=== PATIENT | female | born 1950 | race African-American/Black ===

== ENCOUNTER 2018-05-22 14:59 | Inpatient (IN) | payer MEDICARE, OTHER ==
[~2018-05-22] VITALS: Ht 165.1 cm; Wt 71.2 kg
[~2018-05-22 14:59] MED LIST: ALLEVE; ASPIRIN; BENADRYL 50 MG PO; BUSPAR; CHLORPROMAZINE; COGENTIN; HALOPERIDOL; RISP2TAB23 PO; ROBITUSSIN AC; TYLENOL; [UNRECOGNIZED DRUG - OTHER] PO; valium PO
--- NOTE | 2018-05-22 15:06 | NUR ---
THERE IS NO INFORMATION ABOUT PATIENT REGULAR MEDICATIONS AVAILABLE.
--- NOTE | 2018-05-22 15:09 | NUR ---
PT IS IN ROOM #1A UNDER DIRECT OBSERVATION OF ANGELINA MILLER AND SECURITY AT THE BEDSIDE. CONTINUE TO MONITOR THE PT.
--- NOTE | 2018-05-22 15:11 | NUR ---
PT IS IN ROOM #1A. DR MTZ EVALUATED THE PT.
--- NOTE | 2018-05-22 16:29 | NUR ---
REPORT WAS GIVEN TO RN MENTAL HEALTH. PT WAS TRANSFERED TO U ROOM #137.
--- NOTE | 2018-05-22 17:10 | NUR ---
Gps/Computer Operator- Admitted from ER via wheel chair, in no sign of any distress, anxious, labile mood, speech garble, unclear , gets irritable when questions asked and to clarified words she uttered. Patient noted urgency in urinations 3x to get up to go to the bathroom. Refusal noted to answer questions , gets up and walks away. Showed room, unable to do body check , patient refused to cooperate.Right eye blind, missing teeth , no dentures.
[2018-05-22] MEDS ORDERED: MAGNESIUM HYDROXIDE 30 ML LIQUID UDC PO PRN (17:45)
[2018-05-22] MEDS ORDERED: TEMAZEPAM 7.5 MG CAPSULE PO PRN (17:45)
[2018-05-22] MEDS ORDERED: CIPR-262 PO (18:24)
[2018-05-22 18:34] VITALS: BP 137/76
--- NOTE | 2018-05-22 19:30 | NUR ---
Received patient asleep in room, bed in low position and locked. Noise and lights subdued. Will continue to monitor.
--- NOTE | 2018-05-23 05:37 | NUR ---
Patient slept well throughout the night. No episode of agitation noted. Patient is alert and oriented x 1. Engages in conversation but speech is garbled. Attended all needs. Ensured safety and comfort.
[2018-05-23 07:30] VITALS: BP 129/89
[2018-05-23] MEDS: ACETAMINOPHEN 325 MG TABLET PO PRN (16:15)
[2018-05-23] MEDS: BENZTROPINE MESYLATE 0.5 MG TABLET PO SCH (17:07)
[2018-05-23 17:15] VITALS: BP 102/65
--- NOTE | 2018-05-23 17:46 | NUR ---
RECEIVED PATIENT AWAKE ON BED, SELF CARE, DENIES SI AND HI, PATIENT ABLE TO WALK MAKES HER NEEDS KNOWN, ASK FOR PAIN MEDICATION, FOR GENERALIZED BODY PAIN, , PATIENT WAS RELIEF OF PAIN AFTER MEDICATION, PATIENT COMPLIANT TO MEDICATION, SEEN AND EXAMINED BY DR. MANZO, WITH ORDERS MADE AND CARRIED OUT URINE SPECIMEN COLLECTED AND SENT TO LABS,WILL CONTINUE TO MONITOR
[2018-05-23 17:51] LABS: *BILIRUBIN,URIN 1+ (NEGATIVE); *BLOOD, URINE NEGATIVE (NEGATIVE); *CLARITY,URINE SLIGHTLY CLOUDY (CLEAR); *COLOR,URINE DARK YELLOW (YELLOW); *KETONES,URINE TRACE (NEGATIVE); *UROBILINOGEN,URINE 0.2 E.U./dl (NORMAL); LEUKOCYTE ESTERASE ,URINE NEGATIVE (NEGATIVE); NITRITE, URINE NEGATIVE (NEGATIVE); PH,URINE 6.5 (5.0-8.0); UGLUCOSE NEGATIVE (NEGATIVE)
[2018-05-23 18:16] LABS: BACTERIA,URINE FEW /HPF (NONE SEEN); MUCUS,URINE MANY /LPF (0-FEW); SQUAMOUS EPITHELIAL CELL,UR MODERATE /HPF (NONE SEEN)
[2018-05-23] MEDS: risperiDONE 1 MG TABLET PO SCH (20:14)
[2018-05-24] MEDS: ACETAMINOPHEN 325 MG TABLET PO PRN ×2 (06:03→21:06)
[2018-05-24 07:30] VITALS: BP 132/95
[2018-05-24 07:31] LABS: THYROID STIMULATING HORMONE 0.572 mIU/mL (0.358-3.740)
[2018-05-24 07:47] LABS: BILIRUBIN,TOTAL 0.5 mg/dL (0.2-1.0); CREATININE 0.6 mg/dL (0.6-1.3); PHOSPHOROUS 3.5 mg/dL (2.5-4.9); TOTAL PROTEIN, SERUM 7.8 g/dL (6.4-8.2)
[2018-05-24 07:54] LABS: HEMATOCRIT 35.2 % (31.2-41.9); HEMOGLOBIN 10.5 g/dL (10.9-14.3); LYMPHOCYTES # (AUTO) 2.8 K/uL (20.0-40.0); MEAN CORPUSCULAR HEMOGLOBIN 19.2 uug (24.7-32.8); MEAN CORPUSCULAR HGB CONC 30 g/dL (32.3-35.6); MEAN CORPUSCULAR VOLUME 64.5 fL (75.5-95.3); MONOCYTES # (AUTO) 0.8 K/uL (2.0-10.0); NEUTROPHILS # (AUTO) 4.9 K/uL (1.8-8.9); PLATELET COUNT (AUTO) 366 K/uL (179-408); RED BLOOD CELL COUNT(AUTO) 5.46 MIL/uL (3.63-4.92); WHITE BLOOD COUNT (AUTO) 8.5 K/uL (3.8-11.8)
[2018-05-24 07:57] LABS: LYMPHOCYTES % (AUTO) 32.4 % (20.5-51.5)
[2018-05-24 07:58] LABS: BASOPHILS % (AUTO) 0.2 % (0.0-2.0); EOSINOPHILS % (AUTO) 0.4 % (0.0-7.0)
[2018-05-24] MEDS: BENZTROPINE MESYLATE 0.5 MG TABLET PO SCH ×2 (08:17→16:31)
[2018-05-24] MEDS: risperiDONE 1 MG TABLET PO SCH (08:17)
[2018-05-24 10:43] LABS: LYMPHOCYTES % (MANUAL) 28 % (20-40); MONOCYTES % (MANUAL) 10 % (2-10); NEUTROPHILS % (MANUAL) 62 % (42-75)
[2018-05-24] MEDS: LORAZEPAM 0.5 MG TABLET PO PRN (16:38)
--- NOTE | 2018-05-24 18:28 | NUR ---
End of shift report: Patient laying in bed resting, easily arousable alert and oriented. Denies any SI/HI, safety checks implemented throughout shift. Patient is easily agitated and begins cursing at staff. Patient compliant with medications at scheduled times. Requested Ativan for anxiety, given at 1640. Verbalized relief after medication.
[2018-05-24] MEDS: MAG HYDROX/AL HYDROX/SIMETH 30 ML LIQUID UDC PO PRN (18:41)
[2018-05-24] MEDS: risperiDONE 2 MG TABLET PO SCH (20:12)
[2018-05-24 21:06] VITALS: BP 123/66
--- NOTE | 2018-05-24 22:58 | NUR ---
resting at beginning of the shift. aaox3-4 needs attended. ambulates to the BR, voiding well. VSS compliant with meds and care. Tolerted po meds well. denies any pain nor any discomfort. will monitor patient. fall precautions maintained. assissted back to the BR. voiding well, compliant with meds and care.
[2018-05-25] MEDS: ACETAMINOPHEN 325 MG TABLET PO PRN ×3 (03:13→18:48)
[2018-05-25] MEDS: LORAZEPAM 0.5 MG TABLET PO PRN ×3 (05:28→17:48)
--- NOTE | 2018-05-25 05:30 | NUR ---
patient gets very agitated and screaming all over. refused to get back in bed. ativan 0.5 mg given as needed. will monitor patient for more behavioral issues.
--- NOTE | 2018-05-25 06:29 | NUR ---
patient slept only for 5 hours ambulating in the hallway pacing back and forth. Patient calmed down after ativan. Needs attended. Will monitor patient.
[2018-05-25] MEDS ORDERED: OLANZAPINE 10 MG VIAL IM STA (07:41)
[2018-05-25] MEDS: risperiDONE 1 MG TABLET PO SCH ×2 (08:01→12:48)
[2018-05-25] MEDS: BENZTROPINE MESYLATE 0.5 MG TABLET PO SCH ×2 (08:01→17:16)
--- NOTE | 2018-05-25 08:46 | NUR ---
Patient started throwing things, and taking loud with the staff [id number]. Patient had ativan .5mg PO already around 5am MD Barrera notified and ordered olanzapine 10mg IM now given with fair effect. Refuse to take vital signs. will try again. Continue monitoring
[2018-05-25] MEDS: DIVALPROEX 125 MG TABLET.DR PO SCH ×3 (15:21→21:13)
--- NOTE | 2018-05-25 16:29 | NUR ---
Initial Discharge Instructions: The patient is currently homeless. Patient became agitated and irritable during SS assessment and refused to participate. SW Rn Case Manager Hospice will continue to contact Latisha Coronado the pt.s Homeless Outreach Engagement SW ([phone]). KATEY Rn Case Manager Hospice and other SW will continue to collaborate with interdisciplinary team to ensure safe and proper discharge planning.
--- NOTE | 2018-05-25 18:31 | NUR ---
Patient continue to talk loud to staff. throwing things on the floor like her tray and medicine cup despite of education. Called security twice for behavior. Ativan 0.5mg given around 549pm.
[2018-05-25] MEDS: risperiDONE 2 MG TABLET PO SCH (21:13)
[2018-05-26] MEDS: ACETAMINOPHEN 325 MG TABLET PO PRN ×4 (01:50→20:18)
--- NOTE | 2018-05-26 01:59 | NUR ---
patient's agitation comes and goes. yelling and talking loud most of the time. compliant with meds. on ativan, given as needed. ambulating to and fro in the hallway. needs attended. will monitor patient.refused vital signs.
[2018-05-26] MEDS: LORAZEPAM 0.5 MG TABLET PO PRN ×3 (04:26→16:07)
[2018-05-26] MEDS: MAG HYDROX/AL HYDROX/SIMETH 30 ML LIQUID UDC PO PRN (05:18)
[2018-05-26] MEDS: risperiDONE 1 MG TABLET PO SCH (09:00)
[2018-05-26] MEDS: DIVALPROEX 125 MG TABLET.DR PO SCH (09:01)
[2018-05-26] MEDS: BENZTROPINE MESYLATE 0.5 MG TABLET PO SCH ×2 (09:01→16:41)
[2018-05-26] MEDS ORDERED: OLANZAPINE 10 MG VIAL IM STA (11:17)
[2018-05-26] MEDS: risperiDONE 2 MG TABLET PO SCH ×2 (12:35→20:18)
[2018-05-26] MEDS: DIVALPROEX 250 MG TABLET.DR PO SCH ×2 (12:35→20:18)
[2018-05-26] MEDS ORDERED: DIVALPROEX 125 MG TABLET.DR PO SCH (13:00)
--- NOTE | 2018-05-26 18:05 | NUR ---
received patient awake pacing in the nurses station, patient easily irritable, shouting screaming most of the time, seen angry and argumentative with staff, gave prn medication as ordered , patient calm down in pm,during dinner time patient pacing and irritated, prn meds given no sob no discomfort noted, patient remains free of injury, will continue monitor
--- NOTE | 2018-05-26 20:20 | NUR ---
nsg; patient c/o headache. tylenol 650 mg po given per patient requested.
[2018-05-26 20:50] VITALS: BP 107/70
--- NOTE | 2018-05-26 21:20 | NUR ---
gps: patient stated feeling better. prn effective for headache.
[2018-05-27] MEDS: ACETAMINOPHEN 325 MG TABLET PO PRN ×3 (02:22→17:27)
--- NOTE | 2018-05-27 02:24 | NUR ---
gps: patient c/o gen: pain. tylenol 650 mg po given.
--- NOTE | 2018-05-27 03:24 | NUR ---
patient stated i am feeling better now. prn effective for gen: pain.
[2018-05-27] MEDS: MAG HYDROX/AL HYDROX/SIMETH 30 ML LIQUID UDC PO PRN (05:09)
--- NOTE | 2018-05-27 05:11 | NUR ---
GPS: Patient c/o abdominal discomfort. Maalox 30 ml po given.
[2018-05-27] MEDS: LORAZEPAM 0.5 MG TABLET PO PRN (05:33)
--- NOTE | 2018-05-27 05:35 | NUR ---
GPS: PATIENT C/O ANXIETY. ATIVAN 0.5 MG PO GIVEN.
--- NOTE | 2018-05-27 06:29 | NUR ---
GPS: Remain uncooperative with care. pacing back and forth in the hallway.slept 6 hrs through the night. patient is calm at this time. ativan effective for anxiety. patient is very needy,verbally abusive. continue monitoring for safety.
[2018-05-27] MEDS ORDERED: risperiDONE 1 MG TABLET PO SCH (09:00)
[2018-05-27] MEDS: risperiDONE 2 MG TABLET PO SCH ×4 (09:12→21:50)
[2018-05-27] MEDS: BENZTROPINE MESYLATE 0.5 MG TABLET PO SCH ×2 (09:12→17:10)
[2018-05-27] MEDS: DIVALPROEX 250 MG TABLET.DR PO SCH ×2 (09:12→17:10)
--- NOTE | 2018-05-27 14:43 | NUR ---
Process Group: Patients were asked to reflect and respond to the question "If you could change one things about yourself, what would it be and why?" Subjective: "Takes a strong and physical person to do that" Objective: Patient appeared irritable with labile affect. Patient was initially engaging with peers in a functional manner and pointed out patient strengths. Patient observed speaking over peers and responding with disrespectful comments. Assessment: Patient needed frequent redirection to not speak over peers and to speak about her feelings rather than assume peer's feelings. Patient became hostile and aggressive toward redirection and was asked to leave the group. Plan: Encourage group attendance as scheduled. fabric worker leader will help patient be self aware when speaking and encourage exploration anger management.
[2018-05-27 16:00] VITALS: BP 99/61
[2018-05-27 20:26] VITALS: BP 127/58
[2018-05-28] MEDS: ACETAMINOPHEN 325 MG TABLET PO PRN ×4 (02:07→21:49)
[2018-05-28] MEDS: LORAZEPAM 0.5 MG TABLET PO PRN ×2 (02:07→14:41)
--- NOTE | 2018-05-28 02:17 | NUR ---
Patient awake, confused in the hallway. Provide reality orientation. Difficult to redirect. Offered PRN medications Ativan 0.5mg for anxiety and tylenol 650mg for pain (back). Will continue to monitor.
[2018-05-28 07:30] VITALS: BP 144/46
[2018-05-28] MEDS: risperiDONE 2 MG TABLET PO SCH ×3 (08:20→21:09)
[2018-05-28] MEDS: BENZTROPINE MESYLATE 0.5 MG TABLET PO SCH ×2 (08:20→17:40)
[2018-05-28] MEDS: DIVALPROEX 250 MG TABLET.DR PO SCH ×2 (08:21→17:00)
--- NOTE | 2018-05-28 12:57 | NUR ---
Gamb Cutter Discharge Planning: SW placed call to patient's Homeless Outreach Nursing Associate through [facility], Latisha Coronado ([phone]) to discuss discharge planning and to gather further information about the patient. Spoke with Latisha who confirmed that the patient has a long history of homelessness and that she has been "looking for her" for about 2 weeks. Per Latisha, the patient has been attempting to get surgery for quite some time to repair a hernia with Dr. Braxton Perales [ph. [address] [address]; ]. Per Latisha, Dr. Perales was not going to perform the surgery unless the patient was medically and psychiatrically cleared. Latisha further stated that the plan for the patient is go get her into Recuperative Care after the surgery and work on Permanent Housing for her. Ltaisha the stated that she was going to call Dr. Perales to see if they have time to schedule the patient for surgery next week. KATEY will continue to follow-up.
[2018-05-28] MEDS ORDERED: TEMAZEPAM 7.5 MG CAPSULE PO PRN (15:30)
[2018-05-28 16:00] VITALS: BP 109/40
--- NOTE | 2018-05-28 18:08 | NUR ---
Gps/Woods Boss- Still had episodes of yelling spells, uses foul language from time to time, discouraged from doing so. Had been redirectable. Adequate relief from headache , after taking tylenol 650 mg. po. Requesting to be put on regular food, claimed she can chew even w/o teeth, extra portion of food requested.
[2018-05-28 20:00] VITALS: BP 111/48
[2018-05-29] MEDS: TEMAZEPAM 15 MG CAPSULE PO PRN (00:04)
[2018-05-29] MEDS ORDERED: LOPERAMIDE HCL 2 MG CAPSULE PO ONE (02:30)
[2018-05-29] MEDS: MAG HYDROX/AL HYDROX/SIMETH 30 ML LIQUID UDC PO PRN (04:24)
[2018-05-29 07:25] LABS: BILIRUBIN,TOTAL 0.2 mg/dL (0.2-1.0); CREATININE 0.6 mg/dL (0.6-1.3); POTASSIUM 4.7 mmol/L (3.5-5.1); TOTAL PROTEIN, SERUM 7.3 g/dL (6.4-8.2)
[2018-05-29 07:29] LABS: BASOPHILS % (AUTO) 0.7 % (0.0-2.0); EOSINOPHILS # (AUTO) 0.1 K/uL (0.0-0.7); EOSINOPHILS % (AUTO) 1.8 % (0.0-7.0); LYMPHOCYTES % (AUTO) 34.1 % (20.5-51.5); MEAN CORPUSCULAR HGB CONC 29 g/dL (32.3-35.6); MONOCYTES # (AUTO) 0.8 K/uL (2.0-10.0); MONOCYTES % (AUTO) 13.8 % (0.0-11.0); NEUTROPHILS # (AUTO) 2.8 K/uL (1.8-8.9); NEUTROPHILS % (AUTO) 49.6 % (38.5-71.5); PLATELET COUNT (AUTO) 283 K/uL (179-408)
[2018-05-29 07:53] LABS: HEMATOCRIT 31.2 % (31.2-41.9); RED BLOOD CELL COUNT(AUTO) 4.76 MIL/uL (3.63-4.92); WHITE BLOOD COUNT (AUTO) 5.7 K/uL (3.8-11.8)
[2018-05-29 07:54] LABS: MEAN CORPUSCULAR VOLUME 65.6 fL (75.5-95.3)
[2018-05-29] MEDS: BENZTROPINE MESYLATE 0.5 MG TABLET PO SCH ×2 (08:10→16:41)
[2018-05-29] MEDS: risperiDONE 2 MG TABLET PO SCH ×3 (08:10→20:47)
[2018-05-29] MEDS: LORAZEPAM 0.5 MG TABLET PO PRN ×2 (08:20→16:41)
[2018-05-29] MEDS: LOPERAMIDE HCL 2 MG CAPSULE PO PRN ×3 (08:20→20:47)
[2018-05-29] MEDS: DIVALPROEX 250 MG TABLET.DR PO SCH ×2 (08:21→16:42)
[2018-05-29 08:30] VITALS: BP 129/69
[2018-05-29 08:30] LABS: BASOPHILS % (MANUAL) 2 % (0-2); EOSINOPHILS % (MANUAL) 2 % (0-8); LYMPHOCYTES % (MANUAL) 33 % (20-40); METAMYELOCYTES % 1 % (0-1); MONOCYTES % (MANUAL) 14 % (2-10); NEUTROPHILS % (MANUAL) 48 % (42-75)
[2018-05-29] MEDS: ACETAMINOPHEN 325 MG TABLET PO PRN (14:49)
[2018-05-29 16:00] VITALS: BP 127/51
--- NOTE | 2018-05-29 17:00 | NUR ---
Gps/Wine Maker- Caught and observed walking around just w/ disposable underwearand a blouse, discourage patient from doing so, redirected to pun her pants on, claimed she goes freq. to the bathroom and making a mess on her clothes . Offered to wear liner on her underwear , pt. refused. Offered to use bathroom on the hallway, prn offered.
[2018-05-30] MEDS: TEMAZEPAM 15 MG CAPSULE PO PRN ×2 (00:21→23:23)
[2018-05-30] MEDS: ACETAMINOPHEN 325 MG TABLET PO PRN ×4 (02:32→23:24)
[2018-05-30] MEDS: LORAZEPAM 0.5 MG TABLET PO PRN ×2 (02:32→08:07)
[2018-05-30 07:30] VITALS: BP 130/61
[2018-05-30] MEDS: BENZTROPINE MESYLATE 0.5 MG TABLET PO SCH ×2 (08:07→17:16)
[2018-05-30] MEDS: risperiDONE 2 MG TABLET PO SCH ×3 (08:08→21:25)
[2018-05-30] MEDS: DIVALPROEX 250 MG TABLET.DR PO SCH ×2 (08:09→17:00)
[2018-05-30] MEDS ORDERED: OLANZAPINE 10 MG VIAL IM ONE (08:30)
[2018-05-30 09:40] LABS: *BILIRUBIN,URIN NEGATIVE (NEGATIVE); *BLOOD, URINE NEGATIVE (NEGATIVE); *CLARITY,URINE CLEAR (CLEAR); *COLOR,URINE YELLOW (YELLOW); *KETONES,URINE TRACE (NEGATIVE); *UROBILINOGEN,URINE 0.2 E.U./dl (NORMAL); LEUKOCYTE ESTERASE ,URINE NEGATIVE (NEGATIVE); NITRITE, URINE NEGATIVE (NEGATIVE); PH,URINE 5.5 (5.0-8.0); UGLUCOSE NEGATIVE (NEGATIVE)
[2018-05-30 09:42] LABS: BACTERIA,URINE FEW /HPF (NONE SEEN); RBC,URINE 0-3 /HPF (0-3); SQUAMOUS EPITHELIAL CELL,UR FEW /HPF (NONE SEEN)
[2018-05-30 09:43] LABS: CALCIUM OXALATE CRYSTALS,UR FEW /HPF (NONE SEEN); MUCUS,URINE FEW /LPF (0-FEW)
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
--- NOTE | 2018-05-30 10:30 | NUR ---
Gps/Melter Caster- Patient continue to show aggression toward her female peer, continue to monitor behavior, able to follow simple directions with lots of prompting , instructed to stay in her room for now, monitoring patient closely .Needy behavior, easily gets irritated, argumentative.
[2018-05-30] MEDS: CLONAZEPAM 0.5 MG TABLET PO PRN ×2 (14:53→20:21)
[2018-05-30 15:10] VITALS: BP_SYST 116; BP_SYST 140; BP_DIAS 52; BP_DIAS 70
[2018-05-30 20:38] VITALS: BP 136/62
--- NOTE | 2018-05-30 21:21 | NUR ---
Pt restless and anxious, Klonopin 0.5mg administered as ordered with moderate effect. Will continue to monitor.
[2018-05-30] MEDS: LOPERAMIDE HCL 2 MG CAPSULE PO PRN (23:23)
--- NOTE | 2018-05-31 00:05 | NUR ---
Pt had 2 episodes of diarrhea and incontinence. Shower given, Imodium 2mg administered as ordered. Will continue to monitor.
[2018-05-31] MEDS: ACETAMINOPHEN 325 MG TABLET PO PRN ×2 (06:14→13:58)
[2018-05-31] MEDS: LORAZEPAM 0.5 MG TABLET PO PRN ×2 (06:14→18:57)
[2018-05-31 07:30] VITALS: BP 130/54
[2018-05-31] MEDS: risperiDONE 2 MG TABLET PO SCH ×3 (08:02→19:56)
[2018-05-31] MEDS: BENZTROPINE MESYLATE 0.5 MG TABLET PO SCH ×2 (08:02→17:44)
[2018-05-31] MEDS: DIVALPROEX 250 MG TABLET.DR PO SCH ×2 (08:02→17:00)
[2018-05-31] MEDS: CLONAZEPAM 0.5 MG TABLET PO PRN (15:35)
[2018-05-31] MEDS: LOPERAMIDE HCL 2 MG CAPSULE PO PRN (15:38)
[2018-05-31 15:49] VITALS: BP 136/49
[2018-05-31 20:32] VITALS: BP 140/66
[2018-06-01] MEDS: ACETAMINOPHEN 325 MG TABLET PO PRN ×4 (00:27→23:54)
[2018-06-01] MEDS: TEMAZEPAM 15 MG CAPSULE PO PRN ×2 (00:27→23:54)
[2018-06-01 07:30] VITALS: BP 132/57
[2018-06-01] MEDS: LORAZEPAM 0.5 MG TABLET PO PRN (07:57)
[2018-06-01] MEDS: BENZTROPINE MESYLATE 0.5 MG TABLET PO SCH ×2 (08:07→16:50)
[2018-06-01] MEDS: risperiDONE 2 MG TABLET PO SCH ×3 (08:07→20:33)
[2018-06-01] MEDS: DIVALPROEX 250 MG TABLET.DR PO SCH ×2 (08:07→16:49)
--- NOTE | 2018-06-01 14:37 | NUR ---
Discharge planning: soda worker faxed referral packet for SNF placement to [facility] [phone]; Contact: Doni] and is currently awaiting reply with admission status. Addendum: 06/01/18 at 1536 by JASON NEWMAN SW soda worker received confirmation from Doni admissions graphic art technician, that patient has been accepted to facility.
[2018-06-01 15:54] VITALS: BP 133/83
[2018-06-01] MEDS: CLONAZEPAM 0.5 MG TABLET PO PRN (15:57)
[2018-06-01] MEDS: LOPERAMIDE HCL 2 MG CAPSULE PO PRN ×2 (16:41→23:54)
--- NOTE | 2018-06-01 18:18 | NUR ---
RECEIVED PATIENT AWAKE, PATIENT IN GOOD, HOWEVER EASILY IRRITABLE, AMBULATORY SELF CARE, PATIENT ON NON SKID SOCKS AT ALL TIMES, COMPLIANT TO MEDICATION, PATIENT VERBALIZES OF PAIN, PRN MEDS GIVEN ORDERED, WILL CONTINUE MONITOR
[2018-06-01 19:42] VITALS: BP 127/54
[2018-06-02] MEDS: ACETAMINOPHEN 325 MG TABLET PO PRN (06:41)
[2018-06-02 07:30] VITALS: BP 115/90
[2018-06-02] MEDS: DIVALPROEX 250 MG TABLET.DR PO SCH ×2 (08:01→16:52)
[2018-06-02] MEDS: BENZTROPINE MESYLATE 0.5 MG TABLET PO SCH ×2 (08:01→16:52)
[2018-06-02] MEDS: LORAZEPAM 0.5 MG TABLET PO PRN ×2 (08:01→14:35)
[2018-06-02] MEDS: risperiDONE 2 MG TABLET PO SCH ×3 (08:01→20:38)
[2018-06-02] MEDS: LOPERAMIDE HCL 2 MG CAPSULE PO PRN ×2 (12:20→22:04)
--- NOTE | 2018-06-02 14:49 | NUR ---
Firearms Report: KATEY completed and submitted [employer] Firearms Report for 5150 DTS/GD certification.
[2018-06-02 15:26] VITALS: BP 132/66
[2018-06-02] MEDS ORDERED: SIMETHICONE 80 MG TAB.CHEW PO PRN (17:45)
[2018-06-02 20:17] VITALS: BP 138/59
[2018-06-03] MEDS: TEMAZEPAM 15 MG CAPSULE PO PRN (01:50)
[2018-06-03] MEDS: risperiDONE 2 MG TABLET PO SCH ×3 (08:02→20:32)
[2018-06-03] MEDS: DIVALPROEX 250 MG TABLET.DR PO SCH ×3 (08:03→16:04)
[2018-06-03] MEDS: BENZTROPINE MESYLATE 0.5 MG TABLET PO SCH ×2 (08:03→16:01)
[2018-06-03 08:28] VITALS: BP 141/70
--- NOTE | 2018-06-03 15:50 | NUR ---
Discharge Planning: At 1400: SW met with patient to discuss discharge planning. SW educated and offered patient placement at [facility] [[address] [place] [address]; ]. Patient then stated, "I will not go anywhere other than [facility]." Patient then stated that she has been in and out of homelessness for the past 44 years. Patient was able to verbalize a plan for self-care, reports she has [facility], and stated that she gets her Social Security checks delivered to the [facility] [[address] [place] [address]; [phone]]. Patient refused SNF placement, despite education about safe discharging by this SW. Patient became verbally abusive when SW attempt to discuss placement again at a later time. Patient reports that she plans to go to the [facility], warehouse picker her Social Security check, and then call her [facility] Treater Helper, Latisha Coronado to let her know where she is. Patient reported she knows the public transportation system and will use the bus to get to the [facility]. This SW consulted with Senior Windows Administrator, Karina JACK about this case. At 1530: SW placed call to [facility] ([phone]) to provide a warm hand-off. SW spoke with Ashish at the front end java developer who stated that they "do not accept warm hand-off or create a list of patients coming to their jail." Per Ashish, "If the patient gets her at 7 in the morning, she will be seen by intake and will likely be offered a bed in their 30-90 day jail." At 1540: SW placed call to patient's [facility] Treater Helper, Trenton Stearns ([phone]), who is covering for her regular Treater Helper, Latisha Coronado ([phone]), and this SW alerted Trenton about patient's discharge plan.
[2018-06-03 16:03] VITALS: BP 145/63
--- NOTE | 2018-06-03 16:08 | NUR ---
DISCHARGE NOTE FOR 06/04/18: Patient has refused SNF placement, even though it was offered to her. Patient is choosing to be discharged to the [facility] [[address] [facility] [facility], [place] [address]; [phone]] via public transportation at 5:00am. Patient was given $3 to ride the bus. Patient reports she knows how to use the public transportation. Patient is able to plan for self-care. She is alert and oriented x4, reports she has been in and out of homelessness for the past 44 years, and states she has been living on the sidewalk since 2011. Patient's mood seems labile with a congruent affect. At 1530 on 06/02/18, this marketing underwriter called [facility] ([phone]) and spoke with Ashish at the front desk clerk who states the intermediate "do not accept warm hand-off or create a list of patients coming to their intermediate." Per Ashish, "If the patient gets her at 7 in the morning, she will be seen by intake and will likely be offered a bed in their 30-90 day intermediate." SW left a message for patient's two [employer] Social Workers: Latisha Coronado ([phone]) and Markie Stearns ([phone]) to alert about patient's discharge. Patient reports she is going to [facility] to the [facility], continuous pickling line pickler helper her SSI check, and then call her SW, Latisha, to let her know where she is. Patient was provided with the homeless intermediate packet, which includes a list of emergency shelters, housing resources, drop in centers, and showers/hot meals centers. This also included the Homeless Information Hotline (831)-364-1946 or 211, iFulfillment for [employer] , and the [facility] [phone]; [facility] ([phone]). Patient was referred to [facility] [phone] for Set Up Operator Tool referrals and was provided referrals to low-cost clinics. Patient was provided with outpatient mental health resources to [facility] , [facility] , and the [facility] . She has completed and signed the homeless patient waiver form. Addendum: 06/03/18 at 1620 by JUAN MANUEL MCDONNELL, JASON SW For smoking cessation, patient was referred to [employer] 800-LUNGUSA and [employer] [phone].
[2018-06-03 20:00] VITALS: BP 139/68
--- NOTE | 2018-06-03 20:30 | NUR ---
Patient sleeping, arouses easily for medication administration but gets agitated and uses foul language. Aware of DC in am. NAD noted.
--- NOTE | 2018-06-04 00:30 | NUR ---
Awake, pacing the hallway and very needy. Snack, new gown and pajama provided. Patient claims she has been having diarrhea. Medicated with Imodium. Also medicated with Klonopin and Tylenol per request.
[2018-06-04] MEDS: ACETAMINOPHEN 325 MG TABLET PO PRN (00:32)
[2018-06-04] MEDS: LOPERAMIDE HCL 2 MG CAPSULE PO PRN (00:32)
[2018-06-04] MEDS: CLONAZEPAM 0.5 MG TABLET PO PRN (00:32)
--- NOTE | 2018-06-04 02:20 | NUR ---
Awake, pacing the hallway again, agitated and cursing. Refused Ativan. Redirected and advised appropriately.
--- NOTE | 2018-06-04 03:45 | NUR ---
Requesting to take a shower. Monitored closely while in the shower. Patient calm and cooperative this time.
--- NOTE | 2018-06-04 04:00 | NUR ---
Patient awaiting discharge to [facility]. Discharge process initiated and will be completed by ekg techANGELINA Helm.
[2018-06-04] MEDS ORDERED: RISP2TAB5 PO ×4 (05:00→05:02)
[2018-06-04] MEDS ORDERED: DIVA500T2 PO (05:02)
[2018-06-04] MEDS ORDERED: BENZ2AMP3 PO (05:03)
--- NOTE | 2018-06-04 05:20 | NUR ---
LATE NOTE: DISCHARGE NOTE NSG/GPS Patient discharged as indicated by Integrity Analyst and Endorsed to me by Day shift Charge Nurse. Patient to arrive to [facility] via public transportation by 7:00 a.m. Patient was provided with discharge and follow-up instructions, as well three dollars left by Integrity Analyst to be given to patient for transportation. Patient refused all other placement options and verbalized preference for the assisted. Patient oriented times four at time of discharge, able to care for self. Denied suicidal ideation or intent. Denied homicidal ideation or intent. Patient verbalized understanding of discharge instructions at time of departure.
--- NOTE | 2018-06-04 05:20 | NUR ---
DC to group home with belongings and basic necessities. Complete discharge instructions given by RNs Gabe.
== END 2018-06-04 05:30 | disposition home or self-care (01) | DRG 885 ==
LOC: ER 15:01 → GPS 16:18
PROVIDERS: ADMIT Psychiatry & Neurology Psychosomatic Medicine; ATTEND Internal Medicine
DX: F25.0 Schizoaffective disorder, bipolar type (principal); D68.59 Other primary thrombophilia; E87.1 Hypo-osmolality and hyponatremia; Z59.0 Homelessness; Z74.09 Other reduced mobility; Z98.890 Other specified postprocedural states; R30.0 Dysuria; J44.9 Chronic obstructive pulmonary disease, unspecified; Z87.891 Personal history of nicotine dependence; F03.90 Unspecified dementia, unspecified severity, without behavioral disturbance, psychotic disturbance, mood disturbance, and anxiety; E86.1 Hypovolemia; D64.9 Anemia, unspecified; T22.00XS Burn of unspecified degree of shoulder and upper limb, except wrist and hand, unspecified site, sequela; X08.8XXS Exposure to other specified smoke, fire and flames, sequela; F15.11 Other stimulant abuse, in remission; F14.10 Cocaine abuse, uncomplicated; F12.10 Cannabis abuse, uncomplicated
CPT/HCPCS: 36415; 71045; 80164; 83735; 84100; 84443; 85025; 87086; 93005; A4663; J2358; J3490